=== PATIENT | female | born 1980 | race Caucasian/White ===

== ENCOUNTER → 2018-09-21 | Outpatient (CLI) | payer OTHER ==
[~2018-09-21] MED LIST: IOPAMIDOL (ISOVUE-300) 100 ML BTL ONE
== END ==
LOC: FIMAGING 10:31
PROVIDERS: ATTEND Physician Assistant
DX: K59.00 Constipation, unspecified (principal); N83.02 Follicular cyst of left ovary; K76.89 Other specified diseases of liver
CPT/HCPCS: Q9967